=== PATIENT | male | born 1930 | race Caucasian/White ===

== ENCOUNTER 2018-05-23 14:32 | Inpatient (IN) | payer MEDICARE, OTHER ==
[~2018-05-23] VITALS: Ht 182.9 cm; Wt 94.0 kg
--- NOTE | 2018-05-23 14:51 | NUR ---
PATIENT BIB [facility] FOR N/V/D, COUGH, WEEKNESS X 4 DAYS. DENIES CP. PATIENT 87% RA UPON ARRIVAL PER EMS, NOW 93% 2L NC. A+OX4. IVF AND ALBUTEROL TREATMENT GIVEN EN ROUTE, BS-159, ONLY HX-BPH. MULTIPLE GLF SINCE LAST WED PER FAMILY, NO LOC, PATIENT C/O RT ARM, LOW BACK, AND NECK PAIN. [employer] DEVELOPER ON PATIENT, FAMILY AT BEDSIDE, LAB AT BEDSIDE. CALL LIGHT WITHIN REACH. NADN.
[2018-05-23] MEDS ORDERED: SODIUM CHLORIDE FLUSH 10ML SYR IVF ONE (15:00)
--- NOTE | 2018-05-23 15:00 | NUR ---
LAB AT BEDSIDE, BLOOD CULTURES X 2 DRAWN.
--- NOTE | 2018-05-23 15:02 | NUR ---
PATIENT 94% 4L NC, SKIN WARM, PINK, DRY. XRAY/LABS COMPLETED, AWAITING RESULTS. FAMILY/PATIENT UPDATED ON POC.
[2018-05-23] MEDS ORDERED: ALFU10TA PO (15:04)
--- NOTE | 2018-05-23 15:04 | NUR ---
EMT AT BEDSIDE FOR EKG.
[2018-05-23 15:07] LABS: BASOPHILS # (AUTO) 0.02 x10^3/uL (0-0.1); BASOPHILS % (AUTO) 0 % (0-1); EOSINOPHILS % (AUTO) 0 % (1-7); LYMPHOCYTES # (AUTO) 1.38 x10^3/uL (1-3.4); LYMPHOCYTES % (AUTO) 13 % (22-44); MD NO; MEAN CORPUSCULAR HEMOGLOBIN 31.1 pg (27.5-34.5); MEAN CORPUSCULAR HGB CONC 34.2 g/dL (33.2-36.2); MEAN CORPUSCULAR VOLUME 90.9 fL (81-97); MEAN PLATELET VOLUME 8.4 fL (7.4-10.4); MONOCYTES # (AUTO) 0.34 x10^3/uL (0.2-0.8); MONOCYTES % (AUTO) 3 % (2-9); NEUTROPHILS # (AUTO) 9.28 x10^3/uL (1.8-6.8); NEUTROPHILS % (AUTO) 84 % (42-75); PLATELET COUNT 158 x10^3/uL (130-400); RED BLOOD COUNT 5.24 x10^6/uL (4.38-5.82); RED CELL DISTRIBUTION WIDTH 14.7 % (9.4-14.8)
[2018-05-23 15:16] LABS: RAPID INFLUENZA A POSITIVE (Negative); RAPID INFLUENZA B Negative (Negative)
[2018-05-23 15:21] LABS: ALANINE AMINOTRANSFERASE 38 U/L (12-78); ALBUMIN 3.2 g/dL (3.4-5.0); ANION GAP 9 mmol/L (5-15); CALCIUM 8.3 mg/dL (8.5-10.1); CHLORIDE 100 mmol/L (98-107); CREATININE 0.98 mg/dL (0.7-1.3)
[2018-05-23 15:25] LABS: ALKALINE PHOSPHATASE 63 U/L (45-117); BILIRUBIN,TOTAL 0.9 mg/dL (0.2-1.0); TOTAL PROTEIN 7.2 g/dL (6.4-8.2); TROPONIN I 0.093 ng/mL (0.000-0.045)
--- NOTE | 2018-05-23 15:30 | NUR ---
NEW ORDERS FOR CTA, AWAITING CT.
[2018-05-23 15:42] LABS: INTERNATIONAL NORMALIZED RATIO 1.11 (0.93-1.1); PROTHROMBIN TIME 11.7 Seconds (9.6-11.5)
[2018-05-23] MEDS ORDERED: OMNIPAQUE 350 MG/ML, 100ML BOTTLE ONE (16:07)
[2018-05-23] MEDS ORDERED: POLYETHYLENE GLYCOL 17 GM PACKET PO PRN (16:30)
[2018-05-23] MEDS ORDERED: AZITHROMYCIN 500 MG in SODIUM CHLORIDE 0.9% 250 ML IVPB ONE (16:30)
[2018-05-23] MEDS ORDERED: BISACODYL 10 MG SUPP PR PRN (16:30)
[2018-05-23] MEDS ORDERED: ONDANSETRON ODT 4 MG PO PRN (16:30)
[2018-05-23] MEDS ORDERED: PLEASE ENTER ALLERGIES MC SCH ×2 (16:30→17:00)
[2018-05-23] MEDS ORDERED: ACETAMINOPHEN 325 MG TABLET PO PRN (16:30)
[2018-05-23] MEDS ORDERED: SODIUM CHLORIDE FLUSH 10ML SYR IVF PRN (16:30)
[2018-05-23] MEDS ORDERED: ENALAPRILAT 1.25 MG/ML, 2ML IVPush PRN (16:30)
[2018-05-23] MEDS ORDERED: ONDANSETRON 2MG/ML, 2ML IVPush PRN (16:30)
[2018-05-23] MEDS ORDERED: ENOXAPARIN 40 MG/0.4 ML SQ SCH (16:30)
[2018-05-23] MEDS ORDERED: LABETALOL 5MG/ML, 20ML IVPush PRN (16:30)
[2018-05-23] MEDS ORDERED: LIDODERM 5% PATCH TD PRN (16:30)
--- NOTE | 2018-05-23 16:38 | NUR ---
INGE RN NOTE: PATIENT AND FAMILY UPDATED ON PLAN OF CARE. BEDSIDE WARMER ESTABLISHED. VSS AND UPDATED.
[2018-05-23] MEDS ORDERED: CEFTRIAXONE PMX 1GM/50ML 50 ML ONE (16:40)
[2018-05-23] MEDS: CEFTRIAXONE PMX 1GM/50ML 50 ML IV SCH (16:41)
[2018-05-23] MEDS: CEFTRIAXONE 1,000 MG in SODIUM CHLORIDE 0.9% 50 ML IVPB ONE ×2 (16:45→17:25)
--- NOTE | 2018-05-23 16:52 | NUR ---
JASON RN NOTE: ABX STARTED ON PATIENT PRIOR TO CULTURES. MEDITECH CHECKED FOR CULTURE ORDERED, ANA CASTRO, WHEN MEDITECH REFRESHED AFTER ABX HUNG, CULTURE ORDERS FOUND. LAB SEFERINO CULTURES.
[2018-05-23 17:13] LABS: TROPONIN I 0.096 ng/mL (0.000-0.045)
[2018-05-23] MEDS ORDERED: ALBUTEROL SULFATE 2.5 MG/3 ML ONE (17:29)
[2018-05-23] MEDS: NS + 20MEQ KCL 1,000 ML IV SCH ×2 (17:40→22:24)
[2018-05-23] MEDS: AZITHROMYCIN 500 MG in SODIUM CHLORIDE 0.9% 250 ML IV SCH (17:51)
--- NOTE | 2018-05-23 17:56 | NUR ---
REPORT TO MARTINE JOSHI.
[2018-05-23] MEDS ORDERED: ALBUTEROL SULFATE 2.5 MG/3 ML NPPB PRN (18:00)
--- NOTE | 2018-05-23 18:00 | NUR ---
PATIENT TRANSFERRED/ADMITTED TO HOSPITAL BED UPSTAIRS.
[2018-05-23 18:31] VITALS: BP 107/70
[2018-05-23 18:50] LABS: CULTURE INDICATED? YES; MICROSCOPIC INDICATED
[2018-05-23 19:22] VITALS: BP 101/64
[2018-05-23] MEDS: OSELTAMIVIR 75 MG CAPSULE PO SCH (22:24)
[2018-05-23 22:59] LABS: TROPONIN I 0.124 ng/mL (0.000-0.045)
[2018-05-24 00:28] VITALS: BP 107/70
[2018-05-24 02:36] VITALS: BP 94/60
[2018-05-24] MEDS: ASPIRIN 325 MG TABLET EC PO SCH (05:45)
[2018-05-24 05:51] LABS: MEAN CORPUSCULAR HEMOGLOBIN 31.2 pg (27.5-34.5); MEAN CORPUSCULAR HGB CONC 33.9 g/dL (33.2-36.2); MEAN CORPUSCULAR VOLUME 92.2 fL (81-97); MEAN PLATELET VOLUME 8.5 fL (7.4-10.4); PLATELET COUNT 140 x10^3/uL (130-400); RED BLOOD COUNT 5.15 x10^6/uL (4.38-5.82); RED CELL DISTRIBUTION WIDTH 14.8 % (9.4-14.8)
[2018-05-24 06:01] LABS: CHLORIDE 102 mmol/L (98-107)
[2018-05-24 06:08] LABS: ALANINE AMINOTRANSFERASE 43 U/L (12-78); ALBUMIN 2.7 g/dL (3.4-5.0); ALKALINE PHOSPHATASE 57 U/L (45-117); ANION GAP 8 mmol/L (5-15); BILIRUBIN,TOTAL 1.1 mg/dL (0.2-1.0); CREATININE 1.13 mg/dL (0.7-1.3); TOTAL PROTEIN 6.5 g/dL (6.4-8.2)
[2018-05-24 06:22] LABS: TROPONIN I 0.152 ng/mL (0.000-0.045)
[2018-05-24 06:37] LABS: BASOPHILS # (AUTO) 0.01 x10^3/uL (0-0.1); BASOPHILS % (AUTO) 0 % (0-1); EOSINOPHILS % (AUTO) 0 % (1-7); LYMPHOCYTES # (AUTO) 1.02 x10^3/uL (1-3.4); LYMPHOCYTES % (AUTO) 10 % (22-44); MD SCAN; MONOCYTES % (AUTO) 3 % (2-9); NEUTROPHILS # (AUTO) 8.54 x10^3/uL (1.8-6.8); NEUTROPHILS % (AUTO) 87 % (42-75)
[2018-05-24] MEDS: NS + 20MEQ KCL 1,000 ML IV SCH ×2 (07:02→15:43)
[2018-05-24 08:53] VITALS: BP 99/63
[2018-05-24] MEDS: ALFUZOSIN HCL 10 MG HOMEMEDPO SCH (09:00)
[2018-05-24 10:10] LABS: TROPONIN I 0.121 ng/mL (0.000-0.045)
[2018-05-24] MEDS: OSELTAMIVIR 75 MG CAPSULE PO SCH ×2 (10:20→21:47)
[2018-05-24 13:39] VITALS: BP 102/63
[2018-05-24] MEDS: ENOXAPARIN 100 MG/ML SQ SCH (15:43)
[2018-05-24] MEDS: AZITHROMYCIN 500 MG in SODIUM CHLORIDE 0.9% 250 ML IV SCH (15:46)
[2018-05-24] MEDS: CEFTRIAXONE PMX 1GM/50ML 50 ML IV SCH (18:04)
[2018-05-24 18:57] VITALS: BP 108/66
[2018-05-25 01:41] VITALS: BP 114/72
[2018-05-25] MEDS: NS + 20MEQ KCL 1,000 ML IV SCH (02:00)
[2018-05-25] MEDS: ENOXAPARIN 100 MG/ML SQ SCH ×2 (03:42→15:52)
[2018-05-25 05:04] LABS: BASOPHILS # (AUTO) 0.01 x10^3/uL (0-0.1); BASOPHILS % (AUTO) 0 % (0-1); EOSINOPHILS % (AUTO) 0 % (1-7); LYMPHOCYTES # (AUTO) 0.55 x10^3/uL (1-3.4); LYMPHOCYTES % (AUTO) 8 % (22-44); MD NO; MEAN CORPUSCULAR HEMOGLOBIN 31.3 pg (27.5-34.5); MEAN CORPUSCULAR HGB CONC 34.2 g/dL (33.2-36.2); MEAN CORPUSCULAR VOLUME 91.4 fL (81-97); MEAN PLATELET VOLUME 8.8 fL (7.4-10.4); MONOCYTES # (AUTO) 0.32 x10^3/uL (0.2-0.8); MONOCYTES % (AUTO) 5 % (2-9); NEUTROPHILS % (AUTO) 86 % (42-75); PLATELET COUNT 148 x10^3/uL (130-400); RED BLOOD COUNT 4.65 x10^6/uL (4.38-5.82); RED CELL DISTRIBUTION WIDTH 14.8 % (9.4-14.8)
[2018-05-25 05:07] LABS: ALBUMIN 2.3 g/dL (3.4-5.0); ANION GAP 9 mmol/L (5-15); CALCIUM 7.6 mg/dL (8.5-10.1); CHLORIDE 105 mmol/L (98-107)
[2018-05-25 05:11] LABS: ALANINE AMINOTRANSFERASE 47 U/L (12-78); ALKALINE PHOSPHATASE 55 U/L (45-117); BILIRUBIN,TOTAL 0.9 mg/dL (0.2-1.0); CREATININE 0.64 mg/dL (0.7-1.3)
[2018-05-25] MEDS: ASPIRIN 325 MG TABLET EC PO SCH (05:54)
[2018-05-25 07:10] VITALS: BP 100/70
[2018-05-25] MEDS: ALFUZOSIN HCL 10 MG HOMEMEDPO SCH (07:40)
[2018-05-25] MEDS: OSELTAMIVIR 75 MG CAPSULE PO SCH ×2 (08:37→22:01)
[2018-05-25 13:15] VITALS: BP 99/64
[2018-05-25] MEDS: CEFTRIAXONE PMX 1GM/50ML 50 ML IV SCH (15:52)
[2018-05-25] MEDS ORDERED: NS + 20MEQ KCL 1,000 ML IV SCH (16:26)
[2018-05-25] MEDS: AZITHROMYCIN 500 MG in SODIUM CHLORIDE 0.9% 250 ML IV SCH (16:40)
[2018-05-25 19:50] VITALS: BP 105/72
[2018-05-26 02:00] VITALS: BP 100/67
[2018-05-26] MEDS: ENOXAPARIN 100 MG/ML SQ SCH ×2 (03:44→15:24)
[2018-05-26 05:23] LABS: BASOPHILS # (AUTO) 0.01 x10^3/uL (0-0.1); BASOPHILS % (AUTO) 0 % (0-1); EOSINOPHILS # (AUTO) 0.01 x10^3/uL (0-0.4); EOSINOPHILS % (AUTO) 0 % (1-7); LYMPHOCYTES # (AUTO) 0.84 x10^3/uL (1-3.4); LYMPHOCYTES % (AUTO) 15 % (22-44); MD NO; MEAN CORPUSCULAR HEMOGLOBIN 30.8 pg (27.5-34.5); MEAN CORPUSCULAR HGB CONC 33.6 g/dL (33.2-36.2); MEAN CORPUSCULAR VOLUME 91.6 fL (81-97); MEAN PLATELET VOLUME 8.5 fL (7.4-10.4); MONOCYTES # (AUTO) 0.47 x10^3/uL (0.2-0.8); MONOCYTES % (AUTO) 8 % (2-9); NEUTROPHILS % (AUTO) 77 % (42-75); PLATELET COUNT 157 x10^3/uL (130-400); RED BLOOD COUNT 4.76 x10^6/uL (4.38-5.82); RED CELL DISTRIBUTION WIDTH 14.9 % (9.4-14.8)
[2018-05-26] MEDS: ASPIRIN 325 MG TABLET EC PO SCH (05:31)
[2018-05-26 06:20] LABS: CHLORIDE 103 mmol/L (98-107)
[2018-05-26 06:57] LABS: ALANINE AMINOTRANSFERASE 43 U/L (12-78); ALBUMIN 2.3 g/dL (3.4-5.0); ALKALINE PHOSPHATASE 49 U/L (45-117); ANION GAP 10 mmol/L (5-15); BILIRUBIN,TOTAL 0.9 mg/dL (0.2-1.0); CALCIUM 7.9 mg/dL (8.5-10.1); CREATININE 0.52 mg/dL (0.7-1.3); TOTAL PROTEIN 5.7 g/dL (6.4-8.2)
[2018-05-26 07:36] VITALS: BP 116/77
[2018-05-26] MEDS: ALFUZOSIN HCL 10 MG HOMEMEDPO SCH (08:36)
[2018-05-26] MEDS: OSELTAMIVIR 75 MG CAPSULE PO SCH ×2 (08:36→19:56)
[2018-05-26] MEDS: CEFAZOLIN PMX 1GM/50ML 50 ML IV SCH ×2 (12:40→19:56)
[2018-05-26 13:48] VITALS: BP 101/65
[2018-05-26 18:42] VITALS: BP 100/67
[2018-05-27 03:34] VITALS: BP 116/74
[2018-05-27] MEDS: CEFAZOLIN PMX 1GM/50ML 50 ML IV SCH ×3 (04:26→20:43)
[2018-05-27] MEDS: ASPIRIN 325 MG TABLET EC PO SCH (05:56)
[2018-05-27] MEDS: ENOXAPARIN 100 MG/ML SQ SCH ×2 (06:41→16:40)
[2018-05-27 07:00] VITALS: BP 99/64
[2018-05-27] MEDS: OSELTAMIVIR 75 MG CAPSULE PO SCH ×2 (09:00→20:43)
[2018-05-27] MEDS: ALFUZOSIN HCL 10 MG HOMEMEDPO SCH (09:00)
[2018-05-27 13:10] VITALS: BP 99/64
[2018-05-27 19:46] VITALS: BP 107/68
[2018-05-28 02:40] VITALS: BP 105/71
[2018-05-28] MEDS: CEFAZOLIN PMX 1GM/50ML 50 ML IV SCH (05:09)
[2018-05-28] MEDS: ASPIRIN 325 MG TABLET EC PO SCH (05:10)
[2018-05-28] MEDS: ENOXAPARIN 100 MG/ML SQ SCH (05:10)
[2018-05-28 07:10] VITALS: BP 104/69
[2018-05-28] MEDS: CEFAZOLIN PMX 2GM/50ML 50 ML IVPB SCH ×3 (07:33→23:11)
[2018-05-28] MEDS: ALFUZOSIN HCL 10 MG HOMEMEDPO SCH (09:00)
[2018-05-28] MEDS: OSELTAMIVIR 75 MG CAPSULE PO SCH (09:19)
[2018-05-28 12:24] VITALS: BP 124/80
[2018-05-28 21:11] VITALS: BP 126/86
[2018-05-28] MEDS: ATORVASTATIN 20 MG TABLET PO SCH (21:56)
[2018-05-29 03:34] VITALS: BP 104/71
[2018-05-29] MEDS: ASPIRIN 325 MG TABLET EC PO SCH (05:21)
[2018-05-29 05:38] LABS: CHOL/HDL RATIO 5.9; LDL/HDL RATIO 3.6 (0.5-3.0)
[2018-05-29] MEDS ORDERED: CEPH500T PO (07:22)
[2018-05-29] MEDS: CEFAZOLIN PMX 2GM/50ML 50 ML IVPB SCH ×3 (07:41→23:20)
[2018-05-29 07:45] VITALS: BP 104/67
[2018-05-29] MEDS: ENOXAPARIN 40 MG/0.4 ML SQ SCH (08:50)
[2018-05-29] MEDS: ALFUZOSIN HCL 10 MG HOMEMEDPO SCH (08:54)
[2018-05-29 13:50] VITALS: BP 115/71
[2018-05-29 20:23] VITALS: BP 102/66
[2018-05-29] MEDS: ATORVASTATIN 20 MG TABLET PO SCH (21:16)
[2018-05-29] MEDS: DOCUSATE 100 MG CAPSULE PO PRN (21:16)
[2018-05-30 03:08] VITALS: BP 101/68
[2018-05-30] MEDS: ASPIRIN 325 MG TABLET EC PO SCH (05:18)
[2018-05-30 06:22] LABS: CREATININE 0.42 mg/dL (0.7-1.3)
[2018-05-30] MEDS: CEFAZOLIN PMX 2GM/50ML 50 ML IVPB SCH ×2 (06:34→14:28)
[2018-05-30 07:04] VITALS: BP 103/66
[2018-05-30] MEDS: DOCUSATE 100 MG CAPSULE PO PRN (08:52)
[2018-05-30] MEDS: ENOXAPARIN 40 MG/0.4 ML SQ SCH (08:53)
[2018-05-30] MEDS: ALFUZOSIN HCL 10 MG HOMEMEDPO SCH (08:53)
[2018-05-30] MEDS ORDERED: ATOR20TA37 PO (13:14)
[2018-05-30] MEDS ORDERED: ASPI-650 PO (13:14)
== END 2018-05-30 17:11 | disposition home health service (06) | DRG 177 ==
LOC: ED 16:35 → EDIP 16:36 → 4WST 18:09
PROVIDERS: ADMIT Hospitalist; ATTEND Hospitalist
DX: J10.08 Influenza due to other identified influenza virus with other specified pneumonia (principal); J96.01 Acute respiratory failure with hypoxia; J15.212 Pneumonia due to Methicillin resistant Staphylococcus aureus; E87.1 Hypo-osmolality and hyponatremia; E44.0 Moderate protein-calorie malnutrition; N39.0 Urinary tract infection, site not specified; J15.211 Pneumonia due to Methicillin susceptible Staphylococcus aureus; B95.61 Methicillin susceptible Staphylococcus aureus infection as the cause of diseases classified elsewhere; I11.9 Hypertensive heart disease without heart failure; I48.91 Unspecified atrial fibrillation; J15.6 Pneumonia due to other Gram-negative bacteria; N40.1 Benign prostatic hyperplasia with lower urinary tract symptoms; R33.8 Other retention of urine; Z80.1 Family history of malignant neoplasm of trachea, bronchus and lung; Z87.891 Personal history of nicotine dependence; Z91.81 History of falling; Z99.81 Dependence on supplemental oxygen; W18.30XA Fall on same level, unspecified, initial encounter; Y93.89 Activity, other specified; Y99.8 Other external cause status; Y92.048 Other place in boarding-house as the place of occurrence of the external cause; Z68.28 Body mass index [BMI] 28.0-28.9, adult
CPT/HCPCS: 36415; 84145; 87400; 99285; J7613; 71045; 71275; 80053; 80061; 81001; 82565; 83605; 83735; 83880; 84100; 84484; 85025; 85610; 85730; 87040; 87070; 87077; 87081; 87086; 87186; 87205; 93005; 93306; 94640; 96365; 96366; 96367; 96372; G0378; J0456; J0690; J0696; J1650; J3480; Q9967; J7050